=== PATIENT | male | born 1945 | race Caucasian/White ===

== ENCOUNTER 2018-04-02 15:30 | Inpatient (IN) | payer MEDICARE ==
[2018-04-02] MEDS ORDERED: NORMAL SALINE 1000 ML 1,000 ML IV ONE ×2 (16:07→18:14)
[2018-04-02] MEDS ORDERED: ONDANSETRON HCL INJ/PF 4 MG/2 ML SDV IV ONE (16:07)
--- NOTE | 2018-04-02 16:09 | ER Document Report ---
ED General - General Chief Complaint: Abdominal Pain Stated Complaint: ABDOMINAL PAIN Time Seen by Provider: 04/02/18 16:00 TRAVEL OUTSIDE OF THE [place] IN LAST 30 DAYS: No - HPI Notes: 73-year-old male presents to ED with complaints of left upper quadrant, epigastric abdominal pain that started this morning with vomiting, patient states he felt lightheaded and passed out for "a few seconds" while in the waiting room. Denies any fevers or chills, heart pain or shortness of breath, denies any new foods, medicines or travel. Patient states he does have a history of diverticulitis, had a colonoscopy last year which was unremarkable. His not had anything to eat or drink since last night. Reports symptoms are progressive was brought by son for evaluation.Denies fevers, chills, chest pain,palpitations, shortness of breath, dyspnea, nausea, hematuria,blurred vision, double vision, loss of vision, speech changes, LH, dizziness, syncope, headaches, wheezing, ST, URI, neck pain, weakness, bowel or bladder dysfunction, saddle anesthesia, numbness or tingling in bilateral upper or lower extremities equally, muscle paralysis, weakness in bilateral upper or lower extremities equally or rash. - Related Data Allergies/Adverse Reactions: No Known Allergies Allergy (Unverified 04/02/18 15:42) Past Medical History - General Information source: Patient - Social History Smoking Status: Former Smoker Frequency of alcohol use: Occasional Drug Abuse: None Family History: Reviewed & Not Pertinent Patient has suicidal ideation: No Patient has homicidal ideation: No - Past Medical History Cardiac Medical History: Reports: Hx Hypertension Renal/ Medical History: Denies: Hx Peritoneal Dialysis Past Surgical History: Reports: Hx Cardiac Surgery - Stent, Hx Orthopedic Surgery - trigger finger, Hx Tonsillectomy Review of Systems - Review of Systems Constitutional: See HPI EENT: No symptoms reported Cardiovascular: No symptoms reported Respiratory: No symptoms reported Gastrointestinal: See HPI Genitourinary: No symptoms reported Male Genitourinary: No symptoms reported Musculoskeletal: No symptoms reported Skin: No symptoms reported Hematologic/Lymphatic: No symptoms reported Neurological/Psychological: No symptoms reported Physical Exam - Vital signs Vitals: Temp Pulse Resp BP 97.5 F 49 L 18 96/47 L 04/02/18 15:41 04/02/18 15:41 04/02/18 15:41 04/02/18 15:41 - Notes Notes: PHYSICAL EXAMINATION: GENERAL: Well-appearing, well-nourished and in no acute distress. HEAD: Atraumatic, normocephalic. EYES: Pupils equal round and reactive to light, extraocular movements intact, sclera anicteric, conjunctiva are normal. ENT: Nares patent, oropharynx clear without exudates. Moist mucous membranes. NECK: Normal range of motion, supple without lymphadenopathy LUNGS: Breath sounds clear to auscultation bilaterally and equal. No wheezes rales or rhonchi. HEART: Regular rate and rhythm without murmurs ABDOMEN: Soft, epigastric tenderness, left upper quadrant tenderness, nondistended abdomen. No guarding, no rebound. No masses appreciated. No CVA tenderness to palpation Musculoskeletal: Normal range of motion, no pitting or edema. No cyanosis. NEUROLOGICAL: Cranial nerves grossly intact. Normal speech, normal gait. Normal sensory, motor exams PSYCH: Normal mood, normal affect. SKIN: Warm, Dry, normal turgor, no rashes or lesions noted. Course - Re-evaluation Re-evalutation: 04/02/18 18:53 73-year-old male afebrile vitals stable and in mild distress due to pain presents to the ED for abdominal pain, left upper quadrant abdominal pain with nausea and vomiting, patient states he did have a witnessed syncopal event while in the waiting room when he got up from a seated position when his name was called for evaluation by nurse, CT of head was negative for acute findings, this likely was due to vasovagal response. Patient has no focal neurological deficits. CBC shows a WBC of 13.5 with slight shift, CK 350, no heat hepatic or renal dysfunction, electrolytes stable, urinalysis does show ketones proteinuria. CT abdomen pelvis with IV contrast does show the patient has mild diverticulitis of left lower quadrant as well as malrotation with bowel obstruction dilated small bowel with mechanical. NG tube ordered patient has remained n.p.o.., IV ciprofloxacin as well as Flagyl initiated. Reevaluation patient states he is having more abdominal pain, IV Dilaudid given with good results. Consulted Dr. Rashard Van, surgeon virtualization consultant at 1845, at bedside at 1900, will admit to medical sevice and pending possible surgery. - Vital Signs Vital signs: Temp Pulse Resp BP Pulse Ox 97.5 F 76 18 150/63 H 04/02/18 15:41 04/02/18 18:50 04/02/18 15:41 04/02/18 18:50 - Laboratory Result Diagrams: 04/02/18 16:03 04/02/18 16:03 Laboratory results interpreted by me: 04/02/18 04/02/18 04/02/18 16:03 16:03 16:08 WBC 13.5 H Seg Neuts % (Manual) 84 H Band Neutrophils % 1 L Lymphocytes % (Manual) 2 L Abs Neuts (Manual) 11.5 H Abs Monocytes (Manual) 1.5 H Glucose 137 H POC Glucose 124 H Calcium 10.7 H Alkaline Phosphatase 142 H Creatine Kinase 350 H Urine Protein Urine Ketones Urine Urobilinogen 04/02/18 16:30 WBC Seg Neuts % (Manual) Band Neutrophils % Lymphocytes % (Manual) Abs Neuts (Manual) Abs Monocytes (Manual) Glucose POC Glucose Calcium Alkaline Phosphatase Creatine Kinase Urine Protein 100 H Urine Ketones 80 H Urine Urobilinogen 2.0 H Discharge - Discharge Clinical Impression: maloration, Small bowel obstruction, Diverticulitis Admitting Provider: Hospitalist - Dr. Rashard Fuentes Unit Admitted: Surgical Floor
--- NOTE | 2018-04-02 16:45 | RADIOLOGY REPORT (SQ) ---
EXAM DESCRIPTION: CHEST 2 VIEWS COMPLETED DATE/TIME: 04/02/2018 4:33 pm REASON FOR STUDY: epigastric pain COMPARISON: None. EXAM PARAMETERS: NUMBER OF VIEWS: two views TECHNIQUE: Digital Frontal and Lateral radiographic views of the chest acquired. RADIATION DOSE: NA LIMITATIONS: none FINDINGS: LUNGS AND PLEURA: No opacities, masses or pneumothorax. No pleural effusion. MEDIASTINUM AND HILAR STRUCTURES: No masses or contour abnormalities. HEART AND VASCULAR STRUCTURES: Heart normal size. No evidence for failure. BONES: No acute findings. HARDWARE: None in the chest. OTHER: Dilated small bowel loops in the upper abdomen with air-fluid levels IMPRESSION: NO ACUTE RADIOGRAPHIC FINDING IN THE CHEST. THERE ARE DILATED LOOPS OF SMALL BOWEL IN THE UPPER ABDOMEN WITH AIR-FLUID LEVELS. PATIENT IS SCHEDU LED FOR CT ABDOMEN AND PELVIS. TECHNICAL DOCUMENTATION: JOB ID: [id number] [email or web address] All Rights Reserved Reading location - IP/workstation name: [email or web address]
[2018-04-02 17:01] LABS: AMORPHOUS SEDIMENT,URINE TRACE /HPF; APPEARANCE,URINE CLOUDY; BILIRUBIN,URINE NEGATIVE (NEGATIVE); COLOR,URINE AMBER; GLUCOSE, URINE NEGATIVE (NEGATIVE); KETONES,URINE 80 mg/dL (NEGATIVE); LEUKOCYTE ESTERASE,URINE NEGATIVE (NEGATIVE); NITRITE,URINE NEGATIVE (NEGATIVE); PROTEIN,URINE 100 mg/dL (NEGATIVE)
[2018-04-02 17:17] LABS: ALANINE AMINOTRANSFERASE 36 U/L (21-72); ALBUMIN 4.9 g/dL (3.5-5.0); ALKALINE PHOSPHATASE 142 U/L (38-126); ANION GAP 10 (5-19); ASPARTATE AMINO TRANSFERASE 40 U/L (17-59); BILIRUBIN,DIRECT 0.3 mg/dL (0.0-0.4); BILIRUBIN,TOTAL 0.8 mg/dL (0.2-1.3); BLOOD UREA NITROGEN 16 mg/dL (7-20); CALCIUM 10.7 mg/dL (8.4-10.2); CARBON DIOXIDE 27 mmol/L (22-30); CHLORIDE 102 mmol/L (98-107); CREATINE KINASE 350 U/L (55-170); GLUCOSE 137 mg/dL (75-110); LIPASE 58.3 U/L (23-300); POTASSIUM 4.3 mmol/L (3.6-5.0); SODIUM 139.4 mmol/L (137-145); TOTAL PROTEIN 7.2 g/dL (6.3-8.2)
[2018-04-02 17:19] LABS: HEMATOCRIT 43.8 % (37.9-51.0); HEMOGLOBIN 15.3 g/dL (13.5-17.0); MEAN CORPUSCULAR HEMOGLOBIN 32.5 pg (27.0-33.4); MEAN CORPUSCULAR HGB CONC 34.9 g/dL (32.0-36.0); MEAN CORPUSCULAR VOLUME 93 fl (80-97); PLATELET COUNT 240 10^3/uL (150-450); RED CELL DISTRIBUTION WIDTH 13.2 % (11.5-14.0); WHITE BLOOD COUNT 13.5 10^3/uL (4.0-10.5)
[2018-04-02 17:24] LABS: CREATINE KINASE MB 2.99 ng/mL (<4.55)
[2018-04-02 17:30] LABS: TROPONIN I < 0.012 ng/mL
[2018-04-02 17:33] LABS: ABSOLUTE LYMPHOCYTES# (MANUAL) 0.5 10^3/uL (0.5-4.7); ABSOLUTE MONOCYTES # (MANUAL) 1.5 10^3/uL (0.1-1.4); ABSOLUTE NEUTROPHILS# (MANUAL) 11.5 10^3/uL (1.7-8.2); BAND NEUTROPHILS % (MANUAL) 1 % (3-5); BASOPHILS % (MANUAL) 0 % (0-2); EOSINOPHILS % (MANUAL) 0 % (0-6); LYMPHOCYTES % (MANUAL) 2 % (13-45); MONOCYTES % (MANUAL) 11 % (3-13); SEGMENTED NEUTROPHILS % (MAN) 84 % (42-78); TOTAL CELLS COUNTED 100
[2018-04-02 17:35] LABS: OVALOCYTES SLIGHT; PLATELET COMMENT ADEQUATE; POIKILOCYTOSIS SLIGHT
--- NOTE | 2018-04-02 18:27 | RADIOLOGY REPORT (SQ) ---
EXAM DESCRIPTION: CT HEAD WITHOUT COMPLETED DATE/TIME: 04/02/2018 6:02 pm REASON FOR STUDY: syncopal event COMPARISON: None. TECHNIQUE: Axial images acquired through the brain without intravenous contrast. Images reviewed wi th bone, brain and subdural windows. Additional sagittal and coronal reconstructions were generated. Images stored on PACS. All CT scanners at this facility use dose modulation, iterative reconstruction, and/or weight based d osing when appropriate to reduce radiation dose to as low as reasonably achievable (ALARA). [facility]: Dose Right [facility]: CareDose [facility]: Dose Right [facility]: Teradose 4D [facility]: Smart [employer] RADIATION DOSE: CT Rad equipment meets quality standard of care and radiation dose reduction techniq ues were employed. CTDIvol: 53.2 mGy. DLP: 1070 mGy-cm. mGy. LIMITATIONS: None. FINDINGS: VENTRICLES: Normal size and contour. CEREBRUM: No masses. No hemorrhage. No midline shift. No evidence for acute infarction. Normal gra y/white matter differentiation. No areas of low density in the white matter. CEREBELLUM: No masses. No hemorrhage. No alteration of density. No evidence for acute infarction. EXTRAAXIAL SPACES: No fluid collections. No masses. ORBITS AND GLOBE: No intra- or extraconal masses. Normal contour of globe without masses. CALVARIUM: No fracture. PARANASAL SINUSES: No fluid or mucosal thickening. SOFT TISSUES: No mass or hematoma. OTHER: No other significant finding. IMPRESSION: NORMAL BRAIN CT WITHOUT CONTRAST. EVIDENCE OF ACUTE STROKE: NO. COMMENT: Quality ID # [id number]: Final reports with documentation of one or more dose reduction techniques (e.g., Automated exposure control, adjustment of the mA and/or kV according to patient size, use of iterative reconstruction technique) TECHNICAL DOCUMENTATION: JOB ID: [id number] [employer]- All Rights Reserved Reading location - IP/workstation name: [email or web address]
--- NOTE | 2018-04-02 18:34 | RADIOLOGY REPORT (SQ) ---
EXAM DESCRIPTION: CT ABD/PELVIS WITH IV ONLY COMPLETED DATE/TIME: 04/02/2018 6:02 pm REASON FOR STUDY: epigastric/LLQ pain COMPARISON: None. TECHNIQUE: CT scan of the abdomen and pelvis performed using helical scanning technique with dynamic intravenous contrast injection. No oral contrast. Images reviewed with lung, soft tissue, and bone windows. Reconstructed coronal and sagittal MPR images reviewed. Delayed images for evaluation of the urinary system also acquired. All images stored on PACS. All CT scanners at this facility use dose modulation, iterative reconstruction, and/or weight based d osing when appropriate to reduce radiation dose to as low as reasonably achievable (ALARA). [facility]: Dose Right [facility]: CareDose [facility]: Dose Right [facility]: Teradose 4D [facility]: Swish CONTRAST TYPE AND DOSE: contrast/concentration: Isovue 350.00 mg/ml; Total Contrast Delivered: 100.0 ml; Total Saline Delivered: 72.0 ml RENAL FUNCTION: BUN 16 creatinine 0.81. RADIATION DOSE: CT Rad equipment meets quality standard of care and radiation dose reduction techniq ues were employed. CTDIvol: 9.6 - 14.4 mGy. DLP: 1418 mGy-cm.. LIMITATIONS: None. FINDINGS: LOWER CHEST: No significant findings. No nodules or infiltrates. LIVER: Normal size. Several cysts, the largest in the right lobe measuring 3 x 5 cm. No solid rangel s. No dilated ducts. SPLEEN: Normal size. Small subcentimeter cyst. No other focal lesions. PANCREAS: No masses. No significant calcifications. No adjacent inflammation or peripancreatic fluid collections. Pancreatic duct not dilated. GALLBLADDER: Gallstones. No inflammatory changes to suggest cholecystitis. ADRENAL GLANDS: No significant masses or asymmetry. RIGHT KIDNEY AND URETER: No solid masses. No significant calcifications. No hydronephrosis or hyd roureter. LEFT KIDNEY AND URETER: No solid masses. No significant calcifications. No hydronephrosis or hydr oureter. AORTA AND VESSELS: No aneurysm. No dissection. Renal arteries, SMA, celiac without stenosis. RETROPERITONEUM: No retroperitoneal adenopathy, hemorrhage or masses. BOWEL AND PERITONEAL CAVITY: Bowel malrotation. The duodenum extends inferiorly into the right abdom en instead of crossing to the left upper quadrant. Diffusely dilated fluid filled small bowel. No focal transition point identified. Diverticuli particularly in the descending and sigmoid colon. Mi ld focal inflammation in the pericolonic tissues of the left lower quadrant. No evidence of focal ab scess. Small amount of free fluid. APPENDIX: Not visualized. PELVIS: No mass. Small amount of free fluid. Normal bladder. ABDOMINAL WALL: No masses. No hernias. BONES: No significant or acute findings. OTHER: No other significant finding. IMPRESSION: 1. FOCAL AREA OF MILD DIVERTICULITIS IN THE LEFT LOWER QUADRANT. NO EVIDENCE OF ABSCESS. 2. BOWEL MALROTATION. THE DUODENUM EXTENDS INFERIORLY INTO THE RIGHT SIDE OF THE ABDOMEN INSTEAD OF CROSSING TO THE LEFT UPPER QUADRANT. THERE IS ALSO DIFFUSELY DILATED SMALL BOWEL CONSISTENT WITH MEC HANICAL DISTAL SMALL BOWEL OBSTRUCTION. NO FOCAL TRANSITION POINT VISUALIZED. THIS APPEARS TO BE UN RELATED TO THE FINDINGS OF DIVERTICULITIS IN THE LEFT LOWER QUADRANT. 3. GALLSTONES. 4. HEPATIC CYSTS. 5. NO OTHER SIGNIFICANT OR ACUTE FINDING IN THE ABDOMEN OR PELVIS ON CT SCAN WITH IV CONTRAST. TECHNICAL DOCUMENTATION: JOB ID: [id number] Quality ID # [id number]: Final reports with documentation of one or more dose reduction techniques (e.g., Au tomated exposure control, adjustment of the mA and/or kV according to patient size, use of iterative reconstruction technique) 2010 [employer]- All Rights Reserved Reading location - IP/workstation name: [email or web address]
[2018-04-02] MEDS ORDERED: HYDROMORPHONE HCL INJ/PF 2 MG/ML AMPULE IV ONE (18:50)
[2018-04-02] MEDS ORDERED: METRONIDAZOLE 500 MG/NS RTU 500 MG/100 ML RTUPB IV ONE (18:52)
[2018-04-02] MEDS ORDERED: CIPROFLOXACIN 400 MG/D5W RTU 400 MG/200 ML RTUPB IV ONE (18:52)
[2018-04-02] MEDS ORDERED: MORPHINE SULFATE 10 MG/ML INJ IV PRN (19:59)
--- NOTE | 2018-04-02 19:59 | PDOC H&P ---
History of Present Illness Admission Date/PCP: 03/23/18 Patient complains of: abdominal pain,nausea,vomiting [id number]. had large mexician meal yesterday evening. has hx of diverticulitis History of Present Illness: CORTEZ LIM is a 73 year old male Past Medical History Cardiac Medical History: Reports: Coronary Artery Disease, Hypertension Pulmonary Medical History: Reports: None GI Medical History: Reports: Diverticulitis Past Surgical History Past Surgical History: Reports: Orthopedic Surgery - trigger finger, Tonsillectomy Social History Smoking Status: Former Smoker Family History Parental Family History Reviewed: No Children Family History Reviewed: Unknown Sibling(s) Family History Reviewed.: Unknown Medication/Allergy Allergies/Adverse Reactions: No Known Allergies Allergy (Unverified 04/02/18 15:42) Physical Exam Vital Signs: Temp Pulse Resp BP Pulse Ox 97.5 F 76 18 150/63 H 04/02/18 15:41 04/02/18 18:50 04/02/18 15:41 04/02/18 18:50 Intake & Output 04/01/18 04/02/18 04/03/18 06:59 06:59 06:59 Intake Total 1000 Balance 1000 Weight 89.2 kg General appearance: PRESENT: mild distress Head exam: PRESENT: atraumatic Eye exam: PRESENT: conjunctiva pink Respiratory exam: PRESENT: clear to auscultation benigno, unlabored Cardiovascular exam: PRESENT: RRR Pulses: PRESENT: normal carotid pulses, normal radial pulses, normal femoral pulses Vascular exam: PRESENT: normal capillary refill GI/Abdominal exam: PRESENT: soft, tenderness - soft, but tender to deep palpation now rebound tenderness + bs Rectal exam: PRESENT: deferred Extremities exam: PRESENT: full ROM Musculoskeletal exam: PRESENT: ambulatory, full ROM Skin exam: PRESENT: dry Results Laboratory Results: 04/02/18 16:03 04/02/18 16:03 04/02/18 04/02/18 04/02/18 16:03 16:03 16:30 WBC 13.5 H RBC 4.70 Hgb 15.3 Hct 43.8 MCV 93 MCH 32.5 MCHC 34.9 RDW 13.2 Plt Count 240 Seg Neutrophils % Not Reportable Lymphocytes % Not Reportable Monocytes % Not Reportable Eosinophils % Not Reportable Basophils % Not Reportable Absolute Neutrophils Not Reportable Absolute Lymphocytes Not Reportable Absolute Monocytes Not Reportable Absolute Eosinophils Not Reportable Absolute Basophils Not Reportable Sodium 139.4 Potassium 4.3 Chloride 102 Carbon Dioxide 27 Anion Gap 10 BUN 16 Creatinine 0.81 Est GFR ( Amer) > 60 Est GFR (Non-Af Amer) > 60 Glucose 137 H Calcium 10.7 H Total Bilirubin 0.8 AST 40 ALT 36 Alkaline Phosphatase 142 H Total Protein 7.2 Albumin 4.9 Lipase 58.3 Urine Color NESTOR Urine Appearance CLOUDY Urine pH 7.0 Ur Specific Ruby 1.020 Urine Protein 100 H Urine Glucose (UA) NEGATIVE Urine Ketones 80 H Urine Blood NEGATIVE Urine Nitrite NEGATIVE Ur Leukocyte Esterase NEGATIVE Urine WBC (Auto) 3 Urine RBC (Auto) 1 04/02/18 04/02/18 16:03 16:03 Creatine Kinase 350 H CK-MB (CK-2) 2.99 Troponin I < 0.012 Impressions: Chest X-Ray 04/02/18 16:06 IMPRESSION: NO ACUTE RADIOGRAPHIC FINDING IN THE CHEST. THERE ARE DILATED LOOPS OF SMALL BOWEL IN THE UPPER ABDOMEN WITH AIR-FLUID LEVELS. PATIENT IS SCHEDULED FOR CT ABDOMEN AND PELVIS. Head CT 04/02/18 16:08 IMPRESSION: NORMAL BRAIN CT WITHOUT CONTRAST. EVIDENCE OF ACUTE STROKE: NO. Abdomen/Pelvis CT 04/02/18 16:29 IMPRESSION: 1. FOCAL AREA OF MILD DIVERTICULITIS IN THE LEFT LOWER QUADRANT. NO EVIDENCE OF ABSCESS. 2. BOWEL MALROTATION. THE DUODENUM EXTENDS INFERIORLY INTO THE RIGHT SIDE OF THE ABDOMEN INSTEAD OF CROSSING TO THE LEFT UPPER QUADRANT. THERE IS ALSO DIFFUSELY DILATED SMALL BOWEL CONSISTENT WITH MECHANICAL DISTAL SMALL BOWEL OBSTRUCTION. NO FOCAL TRANSITION POINT VISUALIZED. THIS APPEARS TO BE UNRELATED TO THE FINDINGS OF DIVERTICULITIS IN THE LEFT LOWER QUADRANT. 3. GALLSTONES. 4. HEPATIC CYSTS. 5. NO OTHER SIGNIFICANT OR ACUTE FINDING IN THE ABDOMEN OR PELVIS ON CT SCAN WITH IV CONTRAST. Status: Imported from PACS - reviewed ct sbo, cholelithiasis diverticulitis Assessment & Plan - Plan Summary Plan Summary: pt with hx of diverticulitis presents with new onset of diverticuiltis and small bowel obstruction of note on ct he has a intestinal malrotation his sbo most likely due to loop of small bowel adhesed to sigmoid colon, however could be related to malrotation I have offered him diagnotic laparosocpy with lyis of adhesion and possible ladds procedure for the malrotation. however he understands that he may need a sigmoid colectomy and colostomy if sever diverticulitis noted at time of surgery alternatively he could be treated expectantly with ng suction and observation and abx. he would like to try the ng first I explained that if his pain is not resolved iwth ng within the next \couple of hrs, he would need surgery. he agrees to the plan
[2018-04-02 20:40] LABS: CREATINE KINASE MB 2.71 ng/mL (<4.55)
--- NOTE | 2018-04-02 20:51 | RADIOLOGY REPORT (SQ) ---
EXAM DESCRIPTION: XR ABDOMEN 1 VIEW (KUB) COMPLETED DATE/TME: 04/02/2018 00:00 CLINICAL HISTORY: 73 years, Male, NGtube placement COMPARISON: CT from today's date NUMBER OF VIEWS: 1 TECHNIQUE: Supine portable abdomen LIMITATIONS: None. FINDINGS: Several mildly dilated air-filled loops of small bowel are present. There is gas and stool in the colon. Incomplete obstruction is not excluded. Enteric tube with the distal tip in the proximal stomach. The sidehole is near the GE junction. Advancement might be of benefit. Evaluation for free air limited on a supine view. Osteopenia IMPRESSION: Tip of the enteric tube likely in the proximal stomach. Slight advancement may be of benefit, as above. Mildly dilated air-filled loops of small bowel for which partial or incomplete obstruction is not excluded copyright 2011 [employer]- All Rights Reserved
[2018-04-02 20:57] LABS: TROPONIN I < 0.012 ng/mL
[2018-04-02] MEDS: HEPARIN SOD (PORCINE) 5,000 UNIT/ML 1 ML SYRINGE SUBCUT SCH (22:07)
[2018-04-02] MEDS: FAMOTIDINE INJ/PF 20 MG/2 ML SDV IV SCH (22:10)
[2018-04-02] MEDS: POTASSI CL 20 MEQ/1/2NS 1L 20 MEQ/1,000 ML RTUINJ IV PRN (22:53)
[2018-04-02] MEDS: ONDANSETRON HCL INJ/PF 4 MG/2 ML SDV IV PRN (23:09)
[2018-04-03] MEDS ORDERED: METRONIDAZOLE 500 MG/NS RTU 500 MG/100 ML RTUPB IV SCH
[2018-04-03] MEDS ORDERED: CEFAZOLIN 2 GM/D5W RTU 2 GM/50 ML RTUPB IV SCH
[2018-04-03] MEDS: CEFAZOLIN SODIUM 2 GM in DEXTROSE 5%-WATER 100 ML INJ SCH ×4 (00:30→20:46)
[2018-04-03] MEDS: METRONIDAZOLE 500 MG/NS RTU 500 MG/100 ML RTUPB IV SCH ×3 (03:04→15:07)
--- NOTE | 2018-04-03 06:46 | PDOC PROGRESS REPORT ---
Subjective Progress Note for:: 04/03/18 Reason For Visit: SMALL BOWEL OBSTRUCTION Physical Exam Vital Signs: Temp Pulse Resp BP Pulse Ox 98.6 F 72 16 158/61 H 95 04/03/18 03:43 04/03/18 03:43 04/03/18 03:43 04/03/18 03:43 04/03/18 03:43 Intake & Output 04/01/18 04/02/18 04/03/18 06:59 06:59 06:59 Intake Total 2400 Output Total 400 Balance 2000 Weight 85.5 kg GI/Abdominal exam: PRESENT: soft - soft non tender few bs Results Laboratory Results: 04/02/18 16:03 04/02/18 16:03 04/02/18 04/02/18 04/02/18 16:03 16:03 16:30 WBC 13.5 H RBC 4.70 Hgb 15.3 Hct 43.8 MCV 93 MCH 32.5 MCHC 34.9 RDW 13.2 Plt Count 240 Seg Neutrophils % Not Reportable Lymphocytes % Not Reportable Monocytes % Not Reportable Eosinophils % Not Reportable Basophils % Not Reportable Absolute Neutrophils Not Reportable Absolute Lymphocytes Not Reportable Absolute Monocytes Not Reportable Absolute Eosinophils Not Reportable Absolute Basophils Not Reportable Sodium 139.4 Potassium 4.3 Chloride 102 Carbon Dioxide 27 Anion Gap 10 BUN 16 Creatinine 0.81 Est GFR ( Amer) > 60 Est GFR (Non-Af Amer) > 60 Glucose 137 H Lactic Acid Calcium 10.7 H Total Bilirubin 0.8 AST 40 ALT 36 Alkaline Phosphatase 142 H Total Protein 7.2 Albumin 4.9 Lipase 58.3 Urine Color NESTOR Urine Appearance CLOUDY Urine pH 7.0 Ur Specific [place] 1.020 Urine Protein 100 H Urine Glucose (UA) NEGATIVE Urine Ketones 80 H Urine Blood NEGATIVE Urine Nitrite NEGATIVE Ur Leukocyte Esterase NEGATIVE Urine WBC (Auto) 3 Urine RBC (Auto) 1 04/02/18 19:45 WBC RBC Hgb Hct MCV MCH MCHC RDW Plt Count Seg Neutrophils % Lymphocytes % Monocytes % Eosinophils % Basophils % Absolute Neutrophils Absolute Lymphocytes Absolute Monocytes Absolute Eosinophils Absolute Basophils Sodium Potassium Chloride Carbon Dioxide Anion Gap BUN Creatinine Est GFR ( Amer) Est GFR (Non-Af Amer) Glucose Lactic Acid 0.8 Calcium Total Bilirubin AST ALT Alkaline Phosphatase Total Protein Albumin Lipase Urine Color Urine Appearance Urine pH Ur Specific [place] Urine Protein Urine Glucose (UA) Urine Ketones Urine Blood Urine Nitrite Ur Leukocyte Esterase Urine WBC (Auto) Urine RBC (Auto) 04/02/18 04/02/18 04/02/18 16:03 16:03 19:45 Creatine Kinase 350 H 258 H CK-MB (CK-2) 2.99 Troponin I < 0.012 04/02/18 19:45 Creatine Kinase CK-MB (CK-2) 2.71 Troponin I < 0.012 Impressions: KUB X-Ray 04/02/18 00:00 IMPRESSION: Tip of the enteric tube likely in the proximal stomach. Slight advancement may be of benefit, as above. Mildly dilated air-filled loops of small bowel for which partial or incomplete obstruction is not excluded copyright 2011 [employer]- All Rights Reserved Chest X-Ray 04/02/18 16:06 IMPRESSION: NO ACUTE RADIOGRAPHIC FINDING IN THE CHEST. THERE ARE DILATED LOOPS OF SMALL BOWEL IN THE UPPER ABDOMEN WITH AIR-FLUID LEVELS. PATIENT IS SCHEDULED FOR CT ABDOMEN AND PELVIS. Head CT 04/02/18 16:08 IMPRESSION: NORMAL BRAIN CT WITHOUT CONTRAST. EVIDENCE OF ACUTE STROKE: NO. Abdomen/Pelvis CT 04/02/18 16:29 IMPRESSION: 1. FOCAL AREA OF MILD DIVERTICULITIS IN THE LEFT LOWER QUADRANT. NO EVIDENCE OF ABSCESS. 2. BOWEL MALROTATION. THE DUODENUM EXTENDS INFERIORLY INTO THE RIGHT SIDE OF THE ABDOMEN INSTEAD OF CROSSING TO THE LEFT UPPER QUADRANT. THERE IS ALSO DI FFUSELY DILATED SMALL BOWEL CONSISTENT WITH MECHANICAL DISTAL SMALL BOWEL OBSTRUCTION. NO FOCAL TRANSITION POINT VISUALIZED. THIS APPEARS TO BE UNRELATED TO THE FINDINGS OF DIVERTICULITIS IN THE LEFT LOWER QUADRANT. 3. GALLSTONES. 4. HEPATIC CYSTS. 5. NO OTHER SIGNIFICANT OR ACUTE FINDING IN THE ABDOMEN OR PELVIS ON CT SCAN WITH IV CONTRAST. Assessment & Plan - Inpatient Certification Medical Necessity: Need Close Monitoring Due to Risk of Patient Decompensation, Need For IV Fluids - Plan Summary Plan Summary: small bowel series today r/o malrotation/obstruction
[2018-04-03] MEDS: ONDANSETRON HCL INJ/PF 4 MG/2 ML SDV IV PRN (07:13)
[2018-04-03] MEDS: HEPARIN SOD (PORCINE) 5,000 UNIT/ML 1 ML SYRINGE SUBCUT SCH ×2 (09:06→22:31)
[2018-04-03] MEDS: FAMOTIDINE INJ/PF 20 MG/2 ML SDV IV SCH ×2 (09:06→22:30)
[2018-04-03] MEDS: POTASSI CL 20 MEQ/1/2NS 1L 20 MEQ/1,000 ML RTUINJ IV PRN ×2 (09:14→22:31)
[2018-04-03] MEDS ORDERED: PHENYLEPHRINE HCL INJ/PF 10 MG/1 ML SDV ONE (10:27)
[2018-04-03] MEDS ORDERED: ONDANSETRON HCL INJ/PF 4 MG/2 ML SDV ONE (10:27)
[2018-04-03] MEDS ORDERED: LIDOCAINE 2% INJ-PF (20 MG/ML) 2 ML AMPUL ONE (10:27)
[2018-04-03] MEDS ORDERED: SUCCINYLCHOLINE CHLORIDE INJ 200 MG/10 ML VIAL ONE (10:27)
[2018-04-03] MEDS ORDERED: DEXAMETHASONE SOD PHOSPHATE INJ 4 MG/1 ML VIAL ONE (10:27)
[2018-04-03] MEDS ORDERED: METOCLOPRAMIDE HCL INJ/PF 10 MG/2 ML SDV ONE (10:27)
[2018-04-03] MEDS ORDERED: KETOROLAC TROMETHAMINE 60 MG/2 ML SDV ONE (10:27)
[2018-04-03] MEDS ORDERED: NEOSTIGMINE METHYLSULFATE 10 MG/10 ML VIAL ONE (10:27)
[2018-04-03] MEDS ORDERED: GLYCOPYRROLATE 1 MG/5 ML SYRINGE ONE (10:27)
[2018-04-03] MEDS ORDERED: ROCURONIUM BROMIDE INJ 50 MG/5 ML VIAL IV ONE (10:27)
--- NOTE | 2018-04-03 10:51 | RADIOLOGY REPORT (SQ) ---
EXAM DESCRIPTION: SMALL BOWEL SERIES COMPLETED DATE/TIME: 04/03/2018 9:44 am REASON FOR STUDY: r/o sbo COMPARISON: CT abdomen pelvis 04/02/2018 KUB 04/02/2018 FLUOROSCOPY TIME: No fluoroscopy was used 3 KUB images saved to PACS. LIMITATIONS: None. PROCEDURE: Initial handle machine operator image of abdomen acquired, followed by administration of Gastrografin oral contrast. Serial radiographic images acquired. Fluoroscopic images recorded of the terminal ileum a nd other indicated areas. All images stored on PACS. FINDINGS: Nutrition Professor KUB demonstrates a distended urinary bladder with radiodense urine from prior CT IV contrast 04/02/2018. There are persistent dilated upper abdominal small bowel loops with air-fluid le vels. Minimal gas and stool in the colon. Nasogastric tube tip in the stomach, side port at the GE junction. Stomach decompressed. Degenerative changes lumbar spine. Gastrografin was instilled through the patient's nasogastric tube. Prompt gastric emptying from a no ndistended stomach into a nondistended duodenum to the right of the spine. Jejunum is nondilated, in the right upper quadrant correlating with for foregut malrotation on CT abdomen pelvis 04/02/2018. Just beyond the proximal jejunal nondilated loops, there is a dilated jejunal loop with air-fluid lev el, and there are distal jejunal loops in the mid epigastrium which are dilated with air-fluid levels . At this point, patient was vomiting and was unable to tolerate any further oral contrast. Results ca lled to Dr. Hughes IMPRESSION: Dilated small bowel loops from small bowel obstruction. Foregut malrotation. Findings called to the attending surgeon, Dr. Hughes 1000 hours 04/03/2018. COMMENT: Quality ID [id number]: Final reports for procedures using fluoroscopy that document radiation exp osure indices, or exposure time and number of fluorographic images (if radiation exposure indices are not available) TECHNICAL DOCUMENTATION: JOB ID: [id number] [employer]- All Rights Reserved Reading location - IP/workstation name: [email or web address]
[2018-04-03] MEDS ORDERED: PROMETHAZINE HCL INJ 25 MG/1 ML VIAL ONE (11:43)
[2018-04-03] MEDS ORDERED: PROMETHAZINE HCL INJ 25 MG/1 ML VIAL IV PRN (11:46)
[2018-04-03 12:17] LABS: ANION GAP 8 (5-19); BLOOD UREA NITROGEN 14 mg/dL (7-20); CALCIUM 9.2 mg/dL (8.4-10.2); CARBON DIOXIDE 26 mmol/L (22-30); CHLORIDE 104 mmol/L (98-107); GLUCOSE 130 mg/dL (75-110); POTASSIUM 4.1 mmol/L (3.6-5.0); SODIUM 137.8 mmol/L (137-145)
[2018-04-03 12:34] LABS: HEMATOCRIT 43.2 % (37.9-51.0); HEMOGLOBIN 14.9 g/dL (13.5-17.0); MEAN CORPUSCULAR HEMOGLOBIN 32.3 pg (27.0-33.4); MEAN CORPUSCULAR HGB CONC 34.4 g/dL (32.0-36.0); MEAN CORPUSCULAR VOLUME 94 fl (80-97); PLATELET COUNT 217 10^3/uL (150-450); RED CELL DISTRIBUTION WIDTH 13.2 % (11.5-14.0); WHITE BLOOD COUNT 11.3 10^3/uL (4.0-10.5)
[2018-04-03 13:05] LABS: ABSOLUTE LYMPHOCYTES# (MANUAL) 0.8 10^3/uL (0.5-4.7); ABSOLUTE MONOCYTES # (MANUAL) 0.7 10^3/uL (0.1-1.4); ABSOLUTE NEUTROPHILS# (MANUAL) 9.8 10^3/uL (1.7-8.2); BASOPHILS % (MANUAL) 0 % (0-2); EOSINOPHILS % (MANUAL) 0 % (0-6); HYPOCHROMASIA SLIGHT; LYMPHOCYTES % (MANUAL) 6 % (13-45); MONOCYTES % (MANUAL) 6 % (3-13); PLATELET CLUMPS PRESENT; PLATELET LARGE PRESENT; SEGMENTED NEUTROPHILS % (MAN) 87 % (42-78); TOTAL CELLS COUNTED 100
[2018-04-03] MEDS ORDERED: HYDROMORPHONE HCL INJ/PF 2 MG/ML AMPULE ONE (14:02)
[2018-04-03] MEDS ORDERED: ACETAMINOPHEN 0 MG/0 ML RTUPB IV ONE (14:02)
[2018-04-03] MEDS ORDERED: FENTANYL CITRATE INJ/PF 100 MCG/2 ML AMPUL ONE (14:02)
[2018-04-03] MEDS ORDERED: PROPOFOL INJ 200 MG/20 ML VIAL IV ONE ×2 (14:02→15:53)
[2018-04-03] MEDS ORDERED: MIDAZOLAM 2 MG/2 ML INJ ONE ×2 (14:02→15:52)
[2018-04-03] MEDS ORDERED: BUPIVACAINE HCL 0.5%-EPI 1:200000 INJ/PF 30 ML VIAL ONE (14:09)
[2018-04-03] MEDS ORDERED: FENTANYL CITRATE INJ/PF 250 MCG/5 ML AMPULE ONE (15:52)
[2018-04-03] MEDS ORDERED: DEXMEDETOMIDINE INJ 80 MCG/20 ML VIAL IV ONE (15:52)
[2018-04-03] MEDS ORDERED: ACETAMINOPHEN 1,000 MG/100 ML RTUPB IV ONE (15:53)
--- NOTE | 2018-04-03 18:15 | Operative Report ---
Operative Report DATE OF SURGERY: 04/03/18 PREOPERATIVE DIAGNOSIS: small bowel obstruction, diverticulitis. POSTOPERATIVE DIAGNOSIS: small bowel obstruction OPERATION: diagnostic laparoscopy, lysis of adhesions, appendectomy SURGEON: ADDY MORRISON 1ST PULVERIZER MILL OPERATOR: SILVER KLINE ANESTHESIA: GA TISSUE REMOVED OR ALTERED: appendix COMPLICATIONS: none ESTIMATED BLOOD LOSS: 25cc PROCEDURE: see dictation
[2018-04-03] MEDS ORDERED: MORPHINE SULFATE 10 MG/ML INJ IV PRN (18:17)
--- NOTE | 2018-04-03 22:57 | EKG REPORT ---
SEVERITY:- BORDERLINE ECG - SINUS RHYTHM BORDERLINE T ABNORMALITIES, INFERIOR LEADS : Confirmed by: Anu Villarreal MD 03-Apr-2018 22:56:29
[2018-04-04] MEDS: CEFAZOLIN SODIUM 2 GM in DEXTROSE 5%-WATER 100 ML INJ SCH ×4 (00:16→17:21)
--- NOTE | 2018-04-04 00:17 | OPERATIVE REPORT E ---
Operative Report NAME: CORTEZ LIM : 1945 AGE: 73Y DATE OF SURGERY: 04/03/2018 ROOM: 206 PREOPERATIVE DIAGNOSES: 1. SMALL BOWEL OBSTRUCTION. 2. DIVERTICULITIS. 3. POSSIBLE MALROTATION. POSTOPERATIVE DIAGNOSES: 1. BOWEL OBSTRUCTION. 2. DIVERTICULITIS. 3. INCOMPLETE INTESTINAL ROTATION. OPERATIVE PROCEDURE: Diagnostic laparoscopy with lysis of adhesions and appendectomy. SURGEON: ADDY MORRISON M.D. LEARNING CENTER COORDINATOR: Ramez Hughes M.D. INDICATION FOR PROCEDURE: This is a 73-year-old male who presented to the emergency room last evening with increased nausea and vomiting, abdominal pain. A CT scan was obtained which showed mild to moderate diverticulitis, a small bowel obstruction, and possible malrotation of the small bowel. NG tube was placed and he underwent a small bowel series this morning which confirmed a possible malrotation as well as a bowel obstruction. He was, therefore, brought to the operating for this procedure. PROCEDURE IN DETAIL: The patient was brought to the operating room awake, alert, in stable condition. Placed on the operating room table in supine position. Induced under general anesthesia, intubated. The abdomen was prepped and draped in the usual standard manner for the procedure. A Veress needle was placed into the umbilicus and the abdomen was insufflated with 6 liters of CO2 gas. A supraumbilical 10 mm incision was made with a 12 blade and 10 mm port placed in the abdominal cavity. Intraabdominal visualization revealed no evidence of a Veress needle or trocar injury. Two right-sided abdominal 5 mm ports were placed under direct vision, 1 left-sided 5 mm port under direct vision. We initially noted that there was no evidence of a Veress needle or trocar injury, there was dilated small bowel loops and I also noted that the cecum was in left lower quadrant and most of the small bowel was in the right side of the abdominal cavity and the colon appeared to be mostly on the left side. We then identified a decompressed distal loop of small bowel near the cecum and ran that proximally until we reached a point of fixation, and there appeared to be a ton of omentum that was looped over that small bowel and adhesed to the area on the sigmoid colon where the diverticulitis was occurring. I divided that with a ligature device and released the small bowel. I was then able to run the entire length of the small bowel, decompressing the proximally dilated loops into the distal decompressed loops as we went. We ran that all the way up to the duodenum. There was no ligament of Treitz I could speak of. The duodenum was not dilated and the stomach was decompressed. We ran the small bowel again from the duodenal jejunal junction all the way to the terminal ileum where we identified the fact that there was no injury to the serosa and that it was at now decompressed. I did not identify any Mark's bands to speak of that should be released and this being consistent with an incomplete rotation as opposed to a malrotation. Once this was completed we turned attention to the appendix. Since the cecum was in the right lower quadrant I elected to perform an appendectomy. I took down the mesoappendix with a ligature device to the base of the cecum and then came across the base of the appendix on the cecum with 1 firing of the Endo GI stapler with a blue load and removed the appendix through the umbilical port site. The abdominal cavity was copiously irrigated with normal saline and suctioned dry. We ran the small bowel a third time making sure that there was no injury to it, and there was none. We then reduced pneumoperitoneum. I closed the umbilical port site with 0 Vicryl and the fascia and then closed all the skin incisions with a intraarticular of 4-0 Rapide. Steri-Strips completed the procedure. Estimated blood was less than 25 mL. Sponge and needle counts were correct x2 and the patient was awakened in the operating room, extubated, transferred to recovery in stable condition. No complications. DICTATING PHYSICIAN: ADDY MORRISON M.D. [id number] PHY#: [id number] ID: [id number] JOB#: [id number] ACCT: [id number] cc:ADDY MORRISON M.D. >
[2018-04-04] MEDS: POTASSI CL 20 MEQ/1/2NS 1L 20 MEQ/1,000 ML RTUINJ IV PRN ×2 (10:22→17:23)
[2018-04-04] MEDS: HEPARIN SOD (PORCINE) 5,000 UNIT/ML 1 ML SYRINGE SUBCUT SCH ×2 (10:22→22:59)
[2018-04-04] MEDS: FAMOTIDINE INJ/PF 20 MG/2 ML SDV IV SCH ×2 (10:23→22:58)
--- NOTE | 2018-04-04 12:13 | PDOC PROGRESS REPORT ---
Subjective Progress Note for:: 04/04/18 Reason For Visit: SMALL BOWEL OBSTRUCTION pod 1 s/p laparoscopic lysis of adhesions Physical Exam Vital Signs: Temp Pulse Resp BP Pulse Ox 98.3 F 70 18 148/66 H 97 04/04/18 07:36 04/04/18 07:36 04/04/18 07:36 04/04/18 07:36 04/04/18 07:36 Intake & Output 04/03/18 04/04/18 04/05/18 06:59 06:59 06:59 Intake Total 3400 4550 1000 Output Total 400 2670 25 Balance 3000 1880 975 Weight 85.5 kg 85.7 kg GI/Abdominal exam: PRESENT: hypoactive bowel sounds, soft Results Laboratory Results: 04/03/18 11:15 04/03/18 11:15 04/03/18 04/03/18 11:15 11:15 WBC 11.3 H RBC 4.60 Hgb 14.9 Hct 43.2 MCV 94 MCH 32.3 MCHC 34.4 RDW 13.2 Plt Count 217 Seg Neutrophils % Not Reportable Lymphocytes % Not Reportable Monocytes % Not Reportable Eosinophils % Not Reportable Basophils % Not Reportable Absolute Neutrophils Not Reportable Absolute Lymphocytes Not Reportable Absolute Monocytes Not Reportable Absolute Eosinophils Not Reportable Absolute Basophils Not Reportable Sodium 137.8 Potassium 4.1 Chloride 104 Carbon Dioxide 26 Anion Gap 8 BUN 14 Creatinine 0.84 Est GFR ( Amer) > 60 Est GFR (Non-Af Amer) > 60 Glucose 130 H Calcium 9.2 04/02/18 04/02/18 04/02/18 16:03 16:03 19:45 Creatine Kinase 350 H 258 H CK-MB (CK-2) 2.99 Troponin I < 0.012 04/02/18 19:45 Creatine Kinase CK-MB (CK-2) 2.71 Troponin I < 0.012 Impressions: KUB X-Ray 04/02/18 00:00 IMPRESSION: Tip of the enteric tube likely in the proximal stomach. Slight advancement may be of benefit, as above. Mildly dilated air-filled loops of small bowel for which partial or incomplete obstruction is not excluded copyright 2011 [employer]- All Rights Reserved Chest X-Ray 04/02/18 16:06 IMPRESSION: NO ACUTE RADIOGRAPHIC FINDING IN THE CHEST. THERE ARE DILATED LOOPS OF SMALL BOWEL IN THE UPPER ABDOMEN WITH AIR-FLUID LEVELS. PATIENT IS SCHEDULED FOR CT ABDOMEN AND PELVIS. Head CT 04/02/18 16:08 IMPRESSION: NORMAL BRAIN CT WITHOUT CONTRAST. EVIDENCE OF ACUTE STROKE: NO. Abdomen/Pelvis CT 04/02/18 16:29 IMPRESSION: 1. FOCAL AREA OF MILD DIVERTICULITIS IN THE LEFT LOWER QUADRANT. NO EVIDENCE OF ABSCESS. 2. BOWEL MALROTATION. THE DUODENUM EXTENDS INFERIORLY INTO THE RIGHT SIDE OF THE ABDOMEN INSTEAD OF CROSSING TO THE LEFT UPPER QUADRANT. THERE IS ALSO DIFFUSELY DILATED SMALL BOWEL CONSISTENT WITH MECHANICAL DISTAL SMALL BOWEL OBSTRUCTION. NO FOCAL TRANSITION POINT VISUALIZED. THIS APPEARS TO BE UN RELATED TO THE FINDINGS OF DIVERTICULITIS IN THE LEFT LOWER QUADRANT. 3. GALLSTONES. 4. HEPATIC CYSTS. 5. NO OTHER SIGNIFICANT OR ACUTE FINDING IN THE ABDOMEN OR PELVIS ON CT SCAN WITH IV CONTRAST. Small Bowel X-Ray 04/03/18 08:00 IMPRESSION: Dilated small bowel loops from small bowel obstruction. Foregut malrotation. Findings called to the attending surgeon, Dr. Hughes 1000 hours 04/03/2018. Assessment & Plan - Inpatient Certification Medical Necessity: Need For IV Fluids, Need for IV Antibiotics - Plan Summary Plan Summary: pt feels better this am no flatus but abd feels much better + bs plan clamp ng trial remove sanchez up ambulating cont iv abx for diverticulitis
[2018-04-05] MEDS: CEFAZOLIN SODIUM 2 GM in DEXTROSE 5%-WATER 100 ML INJ SCH ×4 (00:44→17:25)
[2018-04-05] MEDS: POTASSI CL 20 MEQ/1/2NS 1L 20 MEQ/1,000 ML RTUINJ IV PRN ×3 (00:52→22:02)
[2018-04-05] MEDS: HEPARIN SOD (PORCINE) 5,000 UNIT/ML 1 ML SYRINGE SUBCUT SCH ×2 (09:59→22:05)
[2018-04-05] MEDS: FAMOTIDINE INJ/PF 20 MG/2 ML SDV IV SCH ×2 (12:06→22:04)
--- NOTE | 2018-04-05 12:26 | PDOC PROGRESS REPORT ---
Subjective Progress Note for:: 04/05/18 Reason For Visit: SMALL BOWEL OBSTRUCTION Physical Exam Vital Signs: Temp Pulse Resp BP Pulse Ox 98.4 F 61 16 145/87 H 99 04/05/18 11:00 04/05/18 11:00 04/05/18 11:00 04/05/18 11:00 04/05/18 11:00 Intake & Output 04/04/18 04/05/18 04/06/18 06:59 06:59 06:59 Intake Total 4550 3100 Output Total 2670 6065 Balance 1880 -2975 Weight 85.7 kg 85.4 kg GI/Abdominal exam: PRESENT: soft - soft non tender passing flatus and stool Results Laboratory Results: 04/03/18 11:15 04/03/18 11:15 04/02/18 04/02/18 04/02/18 16:03 16:03 19:45 Creatine Kinase 350 H 258 H CK-MB (CK-2) 2.99 Troponin I < 0.012 04/02/18 19:45 Creatine Kinase CK-MB (CK-2) 2.71 Troponin I < 0.012 Impressions: KUB X-Ray 04/02/18 00:00 IMPRESSION: Tip of the enteric tube likely in the proximal stomach. Slight advancement may be of benefit, as above. Mildly dilated air-filled loops of small bowel for which partial or incomplete obstruction is not excluded copyright 2011 [employer]- All Rights Reserved Chest X-Ray 04/02/18 16:06 IMPRESSION: NO ACUTE RADIOGRAPHIC FINDING IN THE CHEST. THERE ARE DILATED LOOPS OF SMALL BOWEL IN THE UPPER ABDOMEN WITH AIR-FLUID LEVELS. PATIENT IS SCHEDULED FOR CT ABDOMEN AND PELVIS. Head CT 04/02/18 16:08 IMPRESSION: NORMAL BRAIN CT WITHOUT CONTRAST. EVIDENCE OF ACUTE STROKE: NO. Abdomen/Pelvis CT 04/02/18 16:29 IMPRESSION: 1. FOCAL AREA OF MILD DIVERTICULITIS IN THE LEFT LOWER QUADRANT. NO EVIDENCE OF ABSCESS. 2. BOWEL MALROTATION. THE DUODENUM EXTENDS INFERIORLY INTO THE RIGHT SIDE OF THE ABDOMEN INSTEAD OF CROSSING TO THE LEFT UPPER QUADRANT. THERE IS ALSO DIFFUSELY DILATED SMALL BOWEL CONSISTENT WITH MECHANICAL DISTAL SMALL BOWEL OBSTRUCTION. NO FOCAL TRANSITION POINT VISUALIZED. THIS APPEARS TO BE U NRELATED TO THE FINDINGS OF DIVERTICULITIS IN THE LEFT LOWER QUADRANT. 3. GALLSTONES. 4. HEPATIC CYSTS. 5. NO OTHER SIGNIFICANT OR ACUTE FINDING IN THE ABDOMEN OR PELVIS ON CT SCAN WITH IV CONTRAST. Small Bowel X-Ray 04/03/18 08:00 IMPRESSION: Dilated small bowel loops from small bowel obstruction. Foregut malrotation. Findings called to the attending surgeon, Dr. Hughes 1000 hours 04/03/2018. Assessment & Plan - Plan Summary Plan Summary: will dc ng start clears and advance as janessa if ok, can dc home tomorrow.
[2018-04-06] MEDS: CEFAZOLIN SODIUM 2 GM in DEXTROSE 5%-WATER 100 ML INJ SCH ×2 (00:04→05:58)
[2018-04-06] MEDS: POTASSI CL 20 MEQ/1/2NS 1L 20 MEQ/1,000 ML RTUINJ IV PRN (05:58)
[2018-04-06] MEDS ORDERED: LOSARTAN POTASSIUM 50 MG TABLET PO ONE (06:45)
[2018-04-06] MEDS ORDERED: AMLODIPINE BESYLATE 5 MG TABLET PO ONE (06:45)
[2018-04-06] MEDS ORDERED: LOSARTAN POTASSIUM 50 MG TABLET ONE ×2 (06:55→07:01)
--- NOTE | 2018-04-06 08:05 | Discharge Summary ---
Discharge Summary (SDC) - Discharge Final Diagnosis: small bowel obstruction, diverticulitis Date of Surgery: 04/03/18 Discharge Date: 04/06/18 Condition: Good Treatment or Instructions: slowely advance diet regular activity f/u with me in 5-7 days Discharge Diet: Full Liquids - advance to soft over next 2-3 days Discharge Activity: Activity As Tolerated, Slowly Increase Activity Report the Following to Your Physician Immediately: Shortness of Breath, Nausea, Vomiting, Increase in Pain
--- NOTE | 2018-04-06 08:12 | PDOC H&P ---
History of Present Illness History of Present Illness: CORTEZ LIM is a 73 year old male Past Medical History Cardiac Medical History: Reports: Hypertension Past Surgical History Past Surgical History: Reports: Orthopedic Surgery - trigger finger, Tonsillectomy Social History Smoking Status: Former Smoker Family History Parental Family History Reviewed: No Children Family History Reviewed: NA Sibling(s) Family History Reviewed.: NA Medication/Allergy Home Medications: Amlodipine Besylate [Norvasc 5 mg Tablet] 5 mg PO DAILY 04/03/18 Aspirin [Ecotrin] 81 mg PO DAILY 04/03/18 Atorvastatin Calcium [Lipitor 20 mg Tablet] 20 mg PO DAILY 04/03/18 Multivitamin/Iron/Folic Acid [Centrum Adults Tablet] 1 each PO DAILY 04/03/18 Allergies/Adverse Reactions: No Known Allergies Allergy (Unverified 04/02/18 15:42) Physical Exam Vital Signs: Temp Pulse Resp BP Pulse Ox 97.5 F 76 18 150/63 H 04/02/18 15:41 04/02/18 18:50 04/02/18 15:41 04/02/18 18:50 Intake & Output 04/01/18 04/02/18 04/03/18 06:59 06:59 06:59 Intake Total 1000 Balance 1000 Weight 89.2 kg Results Laboratory Results: 04/02/18 16:03 04/02/18 16:03 04/02/18 04/02/18 04/02/18 16:03 16:03 16:30 WBC 13.5 H RBC 4.70 Hgb 15.3 Hct 43.8 MCV 93 MCH 32.5 MCHC 34.9 RDW 13.2 Plt Count 240 Seg Neutrophils % Not Reportable Lymphocytes % Not Reportable Monocytes % Not Reportable Eosinophils % Not Reportable Basophils % Not Reportable Absolute Neutrophils Not Reportable Absolute Lymphocytes Not Reportable Absolute Monocytes Not Reportable Absolute Eosinophils Not Reportable Absolute Basophils Not Reportable Sodium 139.4 Potassium 4.3 Chloride 102 Carbon Dioxide 27 Anion Gap 10 BUN 16 Creatinine 0.81 Est GFR ( Amer) > 60 Est GFR (Non-Af Amer) > 60 Glucose 137 H Calcium 10.7 H Total Bilirubin 0.8 AST 40 ALT 36 Alkaline Phosphatase 142 H Total Protein 7.2 Albumin 4.9 Lipase 58.3 Urine Color NESTOR Urine Appearance CLOUDY Urine pH 7.0 Ur Specific Taylor 1.020 Urine Protein 100 H Urine Glucose (UA) NEGATIVE Urine Ketones 80 H Urine Blood NEGATIVE Urine Nitrite NEGATIVE Ur Leukocyte Esterase NEGATIVE Urine WBC (Auto) 3 Urine RBC (Auto) 1 04/02/18 04/02/18 16:03 16:03 Creatine Kinase 350 H CK-MB (CK-2) 2.99 Troponin I < 0.012 Impressions: Chest X-Ray 04/02/18 16:06 IMPRESSION: NO ACUTE RADIOGRAPHIC FINDING IN THE CHEST. THERE ARE DILATED LOOPS OF SMALL BOWEL IN THE UPPER ABDOMEN WITH AIR-FLUID LEVELS. PATIENT IS SCHEDULED FOR CT ABDOMEN AND PELVIS. Head CT 04/02/18 16:08 IMPRESSION: NORMAL BRAIN CT WITHOUT CONTRAST. EVIDENCE OF ACUTE STROKE: NO. Abdomen/Pelvis CT 04/02/18 16:29 IMPRESSION: 1. FOCAL AREA OF MILD DIVERTICULITIS IN THE LEFT LOWER QUADRANT. NO EVIDENCE OF ABSCESS. 2. BOWEL MALROTATION. THE DUODENUM EXTENDS INFERIORLY INTO THE RIGHT SIDE OF THE ABDOMEN INSTEAD OF CROSSING TO THE LEFT UPPER QUADRANT. THERE IS ALSO DIFFUSELY DILATED SMALL BOWEL CONSISTENT WITH MECHANICAL DISTAL SMALL BOWEL OBSTRUCTION. NO FOCAL TRANSITION POINT VISUALIZED. THIS APPEARS TO BE UNRELATED TO THE FINDINGS OF DIVERTICULITIS IN THE LEFT LOWER QUADRANT. 3. GALLSTONES. 4. HEPATIC CYSTS. 5. NO OTHER SIGNIFICANT OR ACUTE FINDING IN THE ABDOMEN OR PELVIS ON CT SCAN WITH IV CONTRAST. Assessment & Plan - Plan Summary Plan Summary: pt to be admitted or treatment of his small bowel obstruction with ng suction, and his diverticulitis iw iv abx a small bowel series will be obtained in am close monitoring if increase of abd pain probable diagnostic laparoscopy
[2018-04-06 09:16] VITALS: BP 96/47
[2018-04-06] MEDS ORDERED: AMLODIPINE BESYLATE 5 MG TABLET PO SCH (10:00)
--- NOTE | 2018-04-06 13:31 | DISCHARGE SUMMARY E ---
Discharge Summary NAME: CORTEZ LIM : 1945 AGE: 73Y ADMITTED: 04/02/2018 DISCHARGED: 04/06/2018 HOSPITAL COURSE: This is a 73-year-old male who was admitted to the hospital on 04/02/2018 for abdominal pain. A CT scan was obtained in the emergency room which showed diverticulitis and small bowel obstruction with questionable incomplete intestinal rotation or malrotation. He was admitted to the hospital and that first night treated with an NG tube without resolution of his symptoms. He then underwent a small bowel series which documented a small bowel obstruction and, therefore, taken to the operating room that evening, on the , for a diagnostic laparoscopy. At the time of surgery he underwent a lysis of adhesions. Subsequent to that he was monitored on the floor with an NG tube which rapidly decreased in its output. He started passing some flatus and the NG tube was removed on postop day 2. When he had return of bowel function and he started passing stool he was started on a clear liquid diet which was slowly advanced to a full liquid diet. At the time of discharge he is afebrile with stable vital signs. He is tolerating a full liquid diet well and passing bowel movements. In addition to that he is being treated for his diverticulitis which was noted on CT scan; this is his second episode of diverticulitis. He has been treated in the hospital with IV antibiotics and will be discharged home now on ciprofloxacin 500 mg p.o. b.i.d. and Flagyl 250 mg p.o. t.i.d. for 10 days. He is instructed to slowly resume his normal activity and slowly advance his diet from full liquids to soft over the course of the next 2 days. He will follow up with me in [facility] in 5 to 7 days after discharge. DISCHARGE CONDITION: Good. DISCHARGE DISPOSITION: To home. DICTATING PHYSICIAN: ADDY MORRISON M.D. [id number] PHY#: [id number] ID: [id number] JOB#: [id number] ACCT: [id number] cc:ADDY MORRISON M.D. >
[2018-04-07] MEDS ORDERED: LOSARTAN POTASSIUM 50 MG TABLET PO SCH (10:00)
[2018-04-07] MEDS ORDERED: AMLODIPINE BESYLATE 5 MG TABLET PO SCH (10:00)
== END 2018-04-06 10:23 | disposition home or self-care (01) | DRG 336 ==
LOC: ER 15:30 → EH 20:35 → 2N 23:45
PROVIDERS: ADMIT Surgery; ATTEND Surgery
PROC: 0DTJ4ZZ Resection of Appendix, Percutaneous Endoscopic Approach (ICD-10-PCS; 2018-04-03)
PROC: 0DNN4ZZ Release Sigmoid Colon, Percutaneous Endoscopic Approach (ICD-10-PCS; principal; 2018-04-03 16:15)
DX: K56.699 Other intestinal obstruction unspecified as to partial versus complete obstruction (principal); K57.92 Diverticulitis of intestine, part unspecified, without perforation or abscess without bleeding; Q43.3 Congenital malformations of intestinal fixation; K80.20 Calculus of gallbladder without cholecystitis without obstruction; K76.89 Other specified diseases of liver; I10 Essential (primary) hypertension; I25.10 Atherosclerotic heart disease of native coronary artery without angina pectoris; Z87.891 Personal history of nicotine dependence
CPT/HCPCS: 36415; 70450; 71046; 74018; 74177; 74250; 790; 80048; 80053; 81001; 82550; 82553; 82962; 83605; 83690; 84484; 85025; 87040; 88304; 93005; 93010; 94799; 96361; 96365; 96368; 96375; 99285; J0131; J0330; J0690; J0744; J1100; J1170; J1644; J1885; J2250; J2270; J2370; J2405; J2550; J2704; J2765; J3010; J3480; J3490; J7030; S0028